=== PATIENT | female | born 1950 ===

== ENCOUNTER 2021-10-23 00:50 | Emergency (ER) | payer MEDICARE, BC ==
[~2021-10-23] VITALS: Ht 157.5 cm; Wt 63.5 kg
[2021-10-23 01:38] VITALS: BP 154/81
[2021-10-23] MEDS ORDERED: NAP500T PO (03:27)
[2021-10-23] MEDS ORDERED: CYCL-838 PO (03:27)
== END 2021-10-23 04:00 | disposition home or self-care (01) ==
LOC: ER 00:58
DX: S03.01XA Dislocation of jaw, right side, initial encounter (principal); W22.8XXA Striking against or struck by other objects, initial encounter; Y93.89 Activity, other specified; Y92.89 Other specified places as the place of occurrence of the external cause; Y99.8 Other external cause status
CPT/HCPCS: 21480; 70486